=== PATIENT | female | born 1955 | race Caucasian/White ===

== ENCOUNTER 2017-01-21 22:56 | Emergency (ER) | payer BC ==
[~2017-01-21] VITALS: Ht 160 cm; Wt 60.3 kg
[2017-01-21 23:03] VITALS: BP 137/67
--- NOTE | 2017-01-21 23:10 | NUR ---
DR HESS AT BEDSIDE FOR EVAL.
[2017-01-21] MEDS ORDERED: TDAP [DIPH/PERTUSSIS/TET] 0.5 ML VIAL IM ONE ×2 (23:13→23:30)
[2017-01-21] MEDS ORDERED: AMOX/CLAVULANATE 875 MG TABLET ONE (23:19)
--- NOTE | 2017-01-21 23:23 | NUR ---
XRAY AT BEDSIDE
[2017-01-21] MEDS ORDERED: HYDROCODONE/APAP 5/325MG 1 EACH TABLET PO ONE (23:30)
[2017-01-21] MEDS ORDERED: AMOX/CLAVULANATE 875 MG TABLET PO ONE (23:30)
[2017-01-22] MEDS ORDERED: IBUPROFEN 400 MG TABLET PO ONE
[2017-01-22] MEDS ORDERED: IBUPROFEN 400 MG TABLET ONE (00:02)
--- NOTE | 2017-01-22 00:26 | NUR ---
Patient discharged to home in stable condition. Written and verbal after care instructions given. Patient verbalizes understanding of instruction. ambulatory with a steady gait. pt w/c per pt request
== END 2017-01-22 00:27 | disposition home or self-care (01) ==
LOC: ER 22:56
DX: S81.851A Open bite, right lower leg, initial encounter (principal); C50.919 Malignant neoplasm of unspecified site of unspecified female breast; E06.3 Autoimmune thyroiditis; W54.0XXA Bitten by dog, initial encounter; Y93.01 Activity, walking, marching and hiking; Y92.89 Other specified places as the place of occurrence of the external cause; Y99.8 Other external cause status
CPT/HCPCS: 73590; 90471; 90715; 99284; A4606; Z7610

== ENCOUNTER 2017-01-26 15:12 | Emergency (ER) | payer BC ==
[~2017-01-26] VITALS: Ht 160 cm; Wt 59.9 kg
[2017-01-26 15:17] VITALS: BP 126/83
== END 2017-01-26 16:07 | disposition home or self-care (01) ==
LOC: ER 15:14
DX: L03.115 Cellulitis of right lower limb (principal); Z85.3 Personal history of malignant neoplasm of breast
CPT/HCPCS: A4606; A6402; A6403; Z7610